=== PATIENT | male | born 1940 | race Caucasian/White ===

== ENCOUNTER 2020-11-15 12:41 | Emergency (ER) | payer MEDICARE ==
--- NOTE | 2020-11-15 13:35 | XRAY ---
Indication: Dehydration. Comparison: None Portable chest clear with incidental COPD, tiny right upper lobe calcified granuloma, and small right hilar calcified node. Remaining heart and lungs unremarkable. Bony thorax intact with mild osteopenia. Impression: Nonacute chest with chronic features.
[2020-11-15] MEDS ORDERED: Sodium Chloride 0.9% 1000 ML 1,000 ML IV STA (13:40)
[2020-11-15 13:44] LABS: Absolute Neutrophil Ct (ANC) 2.32 (1.4-6.9); BASOPHIL % 0.3 % (0.0-0.4); Basophil (Absolute #) 0.01 (0-0.4); Eosinophil (Absolute #) 0 (0-0.5); Hematocrit 40.5 % (42-50); Hemoglobin 13.5 gm/dl (12.5-18.0); Lymphocyte (Absolute #) 0.42 (1.0-4.6); Lymphocytes % 13.7 % (24.0-44.0); Mean Cell Volume 93.1 fl (78-100); Mean Corpuscular Hgb Concent. 33.3 g/dl (32-36); Mean Platelet Volume 10.9 fl (7.5-11.0); Monocyte (Absolute #) 0.32 (0.0-1.3); Monocytes % 10.4 % (0.0-12.0); Neutrophil % 75.6 % (36.0-66.0); Platelet Count 149 K/mm3 (150-450); Red Blood Count 4.35 M/mm3 (4.1-5.6); Red Cell Distribution Width 14.2 % (11.5-14.0); White Blood Count 3.1 K/mm3 (4.0-10.5)
--- NOTE | 2020-11-15 13:50 | ERPHSYRPT ---
- History of Present Illness Source: patient Exam Limitations: no limitations Patient Subjective Stated Complaint: pt reports concern for covid, states his 's at home covid test was positive, states they were possibly exposed at a wedding recently, pt reports at the time his at home test was negative but now his symptoms have increased, reports he has chills, possible fever but did not check it, diarrhea, and reports his taste is off, his symptom onset was 2 days ago Triage Nursing Assessment: pt is aox3, afebrile, pupils perrl, resps easy and non labored, radial pulses strong and equal, cap refill < 3 seconds, pt skin pink warm dry, pt appears very thin. Physician History: 80 yo wm who's tested + for CV19 presents w 3 day h/o N/diarrhea/GAN/mild coryza/arthralgias/mild dyspnea. Pt fully vaccinated w Moderna. He denies fever/cough/dysuria/chest pain. Timing/Duration: other (3 days) Fever Therapy MANAGER BUSINESS INFORMATION: none Associated Symptoms: diaphoresis, headache, muscle aches, rhinorrhea, shortness of breath, weakness, No abdominal pain, No chest pain, No confusion, No cough, No nausea/vomiting, No rash, No sore throat, No stiff neck, No syncope Allergies/Adverse Reactions: clarithromycin Allergy (Verified 11/15/20 13:08) Home Medications: AMITRIPTYLINE HCL 50 mg Tab [AMITRIPTYLINE HCL 50 mg Tablet] 50 mg PO HS 11/15/20 [History] Amlodipine Besylate 5 mg [Norvasc 5 mg] 5 mg PO DAILY 11/15/20 [History] Atorvastatin Calcium [Lipitor 20MG Tablet] 20 mg PO HS 11/15/20 [History] Gabapentin 100 mg [Neurontin 100 MG] 100 mg PO TID 11/15/20 [History] Lisinopril 10 mg [Zestril 10 MG] 10 mg PO DAILY 11/15/20 [History] Lisinopril 5 mg [Zestril 5 MG] 5 mg PO DAILY 11/15/20 [History] clonazePAM [Clonazepam] 0.5 mg PO TID 11/15/20 [History] Hx Tetanus, Diphtheria Vaccination/Date Given: Yes Hx Influenza Vaccination/Date Given: Yes Hx Pneumococcal Vaccination/Date Given: Yes Immunizations Up to Date: Yes Travel Risk - International Travel Have you traveled outside of the country in past 3 weeks: No - Coronavirus Screening Are you exhibiting any of the following symptoms?: Yes Symptoms: Fever, Vomiting/Diarrhea, Loss of Taste or Smell - Vaccine Status Have you recieved a Covid-19 vaccination: Yes [employer]: Moderna - Vaccination Dates Date of 2cond Vaccination (if applicable): unk - Review of Systems Constitutional: Chills, Fatigue, Lethargy, Malaise, Weakness Eyes: No Symptoms Ears, Nose, & Throat: No Symptoms, Nose Congestion Respiratory: No Symptoms, Dyspnea on Exertion (MACK) Cardiac: No Symptoms Abdominal/Gastrointestinal: No Symptoms, Nausea, Diarrhea Genitourinary Symptoms: No Symptoms Musculoskeletal: No Symptoms, Arthralgias Skin: No Symptoms Neurological: No Symptoms Psychological: No Symptoms Endocrine: No Symptoms Hematologic/Lymphatic: No Symptoms Immunological/Allergic: No Symptoms - Past Medical History Pertinent Past Medical History: No Neurological History: Seizures Cardiac History: High Cholesterol, Hypertension GI Medical History: Colorectal Cancer - Past Surgical History Past Surgical History: Yes Gastrointestinal: Colon Resection - Social History Smoking Status: Never smoker Drug Use: none Patient Lives Alone: No Significant Family History: no pertinent family hx - Nursing Vital Signs Nursing Vital Signs: Initial Vital Signs Temperature 98.3 F 11/15/20 12:55 Pulse Rate 80 11/15/20 12:55 Respiratory Rate 20 11/15/20 12:55 Blood Pressure 168/101 11/15/20 12:55 O2 Sat by Pulse Oximetry 99 11/15/20 12:55 Pain Scale Pain Intensity 0 Hypertensive - Physical Exam General Appearance: no apparent distress Eye Exam: PERRL/EOMI, eyes nml inspection ENT Exam: normal ENT inspection, no apparent trauma Neck Exam: normal inspection, non-tender, supple, full range of motion, trachea midline Respiratory Exam: normal breath sounds, lungs clear, no respiratory distress Cardiovascular/Chest Exam: normal heart sounds, regular rate/rhythm, normal peripheral pulses, No murmur Gastrointestinal/Abdominal Exam: soft, non tender, no distention Extremity Exam: non-tender, normal range of motion, normal inspection, normal capillary refill Neurologic Exam: alert, oriented x 3, cooperative, clock and watch hands mounter II-XII nml as tested, normal mood/affect, nml cerebellar function, nml station & gait, sensation nml, No motor deficits, No sensory deficit Skin Exam: normal color, warm, dry Lymphatic: No adenopathy SpO2 Interpretation: normal SpO2: 99 O2 Delivery: Room Air - Course Nursing assessment & vital signs reviewed: Yes - Radiology Exams Chest X-ray Interpretation: Discussed w/ radiologist (COPD/Nothing acute) Ordered Tests: Active Orders 24 hr Category Date Time Status IV Insertion STAT Care 11/15/20 13:09 Completed CHEST 1 VIEW (PORTABLE) Stat Exams 11/15/20 13:11 Completed CBC W DIFF Stat Lab 11/15/20 13:32 Completed CMP Stat Lab 11/15/20 13:32 Completed Lactic Acid Stat Lab 11/15/20 13:09 Completed Manual Differential NC Stat Lab 11/15/20 13:32 Completed Medication Summary Discontinued Medications Generic Name Dose Route Start Last Admin Trade Name Freq PRN Reason Stop Dose Admin Sodium Chloride 1,000 mls @ 999 mls/hr 11/15/20 13:40 11/15/20 15:47 Sodium Chloride 0.9% 1000 Ml IV 11/15/20 14:40 Infused .Q1H1M STA Infusion Sodium Chloride Confirm 11/15/20 14:22 Sodium Chloride 0.9% 1000 Ml Administered 11/15/20 14:23 Dose 1,000 mls @ ud .ROUTE .STK-MED ONE Lab/Rad Data: Laboratory Result Diagrams 11/15/20 13:32 11/15/20 13:32 Laboratory Results 11/15/20 11/15/20 11/15/20 Range/Units 14:30 13:32 13:32 WBC 3.1 L (4.0-10.5) K/mm3 RBC 4.35 (4.1-5.6) M/mm3 Hgb 13.5 (12.5-18.0) gm/dl Hct 40.5 L (42-50) % MCV 93.1 (78-100) fl MCH 31.0 (26-32) pg MCHC 33.3 (32-36) g/dl RDW 14.2 H (11.5-14.0) % Plt Count 149 L (150-450) K/mm3 MPV 10.9 (7.5-11.0) fl Gran % 75.6 H (36.0-66.0) % Eos # (Auto) 0 (0-0.5) Absolute Lymphs (auto) 0.42 L (1.0-4.6) Absolute Monos (auto) 0.32 (0.0-1.3) Lymphocytes % 13.7 L (24.0-44.0) % Monocytes % 10.4 (0.0-12.0) % Eosinophils % 0.0 (0.00-5.0) % Basophils % 0.3 (0.0-0.4) % Absolute Granulocytes 2.32 (1.4-6.9) Segmented Neutrophils 77 H (36.-66.) % Lymphocytes (Manual) 16 L (24-44) % Monocytes (Manual) 7 (0.0-12.0) % Basophils # 0.01 (0-0.4) Platelet Estimate NORMAL (NORMAL) RBC Morphology ABNORMAL Anisocytosis 1+ Macrocytosis 1+ Sodium 132 L (137-145) mmol/L Potassium 4.0 (3.5-5.1) mmol/L Chloride 95 L (98-107) mmol/L Carbon Dioxide 24 (22-30) mmol/L Anion Gap 17.3 H (5-15) MEQ/L BUN 14 (9-20) mg/dL Creatinine 0.86 (0.66-1.25) mg/dL Estimated GFR > 60.0 ML/MIN Glucose 100 (74-106) mg/dL Lactic Acid (0.4-2.0) Calcium 8.9 (8.4-10.2) mg/dL Total Bilirubin 0.40 (0.2-1.3) mg/dL AST 35 (17-59) U/L ALT 21 (0-50) U/L Alkaline Phosphatase 72 (38-126) U/L Troponin 0.01 (0.00-0.03) ng/mL Serum Total Protein 7.3 (6.3-8.2) g/dL Albumin 4.4 (3.5-5.0) g/dL 11/15/20 Range/Units 13:09 WBC (4.0-10.5) K/mm3 RBC (4.1-5.6) M/mm3 Hgb (12.5-18.0) gm/dl Hct (42-50) % MCV (78-100) fl MCH (26-32) pg MCHC (32-36) g/dl RDW (11.5-14.0) % Plt Count (150-450) K/mm3 MPV (7.5-11.0) fl Gran % (36.0-66.0) % Eos # (Auto) (0-0.5) Absolute Lymphs (auto) (1.0-4.6) Absolute Monos (auto) (0.0-1.3) Lymphocytes % (24.0-44.0) % Monocytes % (0.0-12.0) % Eosinophils % (0.00-5.0) % Basophils % (0.0-0.4) % Absolute Granulocytes (1.4-6.9) Segmented Neutrophils (36.-66.) % Lymphocytes (Manual) (24-44) % Monocytes (Manual) (0.0-12.0) % Basophils # (0-0.4) Platelet Estimate (NORMAL) RBC Morphology Anisocytosis Macrocytosis Sodium (137-145) mmol/L Potassium (3.5-5.1) mmol/L Chloride (98-107) mmol/L Carbon Dioxide (22-30) mmol/L Anion Gap (5-15) MEQ/L BUN (9-20) mg/dL Creatinine (0.66-1.25) mg/dL Estimated GFR ML/MIN Glucose (74-106) mg/dL Lactic Acid 1.3 (0.4-2.0) Calcium (8.4-10.2) mg/dL Total Bilirubin (0.2-1.3) mg/dL AST (17-59) U/L ALT (0-50) U/L Alkaline Phosphatase (38-126) U/L Troponin (0.00-0.03) ng/mL Serum Total Protein (6.3-8.2) g/dL Albumin (3.5-5.0) g/dL - Progress Progress: improved Progress Note: 11/15/20 16:16 1L NS bolus Sars test sent to lab 11/15/20 17:38 Pt stable and feels better after NS bolus Counseled pt/family regarding: lab results, diagnosis, need for follow-up, rad results - Departure Departure Disposition: Home Clinical Impression: Viral syndrome Condition: Stable Critical Care Time: No Referrals: TOMÁS DOMINGO MD [Primary Care Provider] - Instructions: Fever, Adult (DC), Coronavirus Disease 2019 (COVID-19) (DC) Additional Instructions: Covid test back in 2-3 days Quarantine for 10 days or until Covid tesat negative Return to ER for increasing shortness of breath, worsening diarrhea, or increasing abdominal pain
[2020-11-15] MEDS ORDERED: Sodium Chloride 0.9% 1000 ML 1,000 ML ONE (14:22)
[2020-11-15 14:26] LABS: ALBUMIN 4.4 g/dL (3.5-5.0); ALKALINE PHOSPHATASE 72 U/L (38-126); ANION GAP 17.3 MEQ/L (5-15); BLOOD UREA NITROGEN 14 mg/dL (9-20); CHLORIDE 95 mmol/L (98-107); Calcium 8.9 mg/dL (8.4-10.2); Carbon Dioxide 24 mmol/L (22-30); Creatinine 1 0.86 mg/dL (0.66-1.25); EST GLOMERULAR FILTRATION RATE > 60.0 ML/MIN; Glucose 100 mg/dL (74-106); SGOT/AST 35 U/L (17-59); SGPT/ALT 21 U/L (0-50); SODIUM 132 mmol/L (137-145); Total Protein 7.3 g/dL (6.3-8.2)
[2020-11-15 14:34] LABS: Lymphocytes 16 % (24-44); Monocyte 7 % (0.0-12.0); Neutrophils 77 % (36.-66.); Total Cells Counted 100
[2020-11-15 14:35] LABS: ANISOCYTOSIS 1+; Macrocytosis 1+; Platelet Estimate NORMAL (NORMAL)
[2020-11-15 16:19] VITALS: O2SAT 99
[2020-11-15 16:20] VITALS: BP 141/87; PULSE 68
== END 2020-11-15 16:34 | disposition home or self-care (01) ==
LOC: ED 12:41
DX: B34.9 Viral infection, unspecified (principal); R51.9 Headache, unspecified; M79.18 Myalgia, other site; J34.89 Other specified disorders of nose and nasal sinuses; R06.02 Shortness of breath; Z79.899 Other long term (current) drug therapy; R50.9 Fever, unspecified; R11.10 Vomiting, unspecified; R19.7 Diarrhea, unspecified; R43.8 Other disturbances of smell and taste; E78.00 Pure hypercholesterolemia, unspecified; I10 Essential (primary) hypertension; Z20.822 Contact with and (suspected) exposure to COVID-19
CPT/HCPCS: 36000; 36415; 71045; 80053; 83605; 84484; 85025; 96360; 99284; U0003